=== PATIENT | female | born 1995 | race Hispanic/Latino ===

== ENCOUNTER 2021-11-06 19:01 | Emergency (ER) | payer SELFPAY ==
[~2021-11-06] VITALS: Ht 162.6 cm; Wt 64.9 kg
[2021-11-06] MEDS ORDERED: IBUPROFEN 600 MG TAB PO STA (19:21)
[2021-11-06] MEDS ORDERED: MUPIROCIN22 GM TOP (19:23)
[2021-11-06] MEDS ORDERED: IBUPROFEN600 MG PO (19:23)
[2021-11-06] MEDS ORDERED: BACITRACIN ZINC 0.9GM TP ONE ×2 (19:30→19:37)
[2021-11-06] MEDS ORDERED: IBUPROFEN 600 MG TAB ONE (19:37)
[2021-11-06] MEDS ORDERED: DEXAMETHASONE SOD PHOS INJ 4 MG/ML SDV ONE (22:55)
[2021-11-06] MEDS ORDERED: ACETAMINOPHEN 325 MG TAB ONE (22:55)
== END 2021-11-06 19:55 | disposition home or self-care (01) ==
LOC: FSED 19:10
DX: T21.21XA Burn of second degree of chest wall, initial encounter (principal); T22.112A Burn of first degree of left forearm, initial encounter; X12.XXXA Contact with other hot fluids, initial encounter; Y92.008 Other place in unspecified non-institutional (private) residence as the place of occurrence of the external cause; F17.210 Nicotine dependence, cigarettes, uncomplicated
CPT/HCPCS: 16020; 99283; J1100